=== PATIENT | male | born 1995 | race Caucasian/White ===

== ENCOUNTER 2020-06-05 13:24 | Emergency (ER) | payer BC, SELFPAY ==
[2020-06-05 13:26] VITALS: BP 152/95; PULSE 98; RESP 16; TEMP 36.8; O2SAT 99; BMI 22.2
[2020-06-05 13:30] VITALS: O2SAT 99
--- NOTE | 2020-06-05 13:35 | ED.RN ---
dr garcia accepted. pt will need a [facility] bed. [facility] should have beds this afternoon
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
[2020-06-05] MEDS: Ibuprofen 100 MG/5 ML UDC 600 MG PO (15:49)
--- NOTE | 2020-06-05 15:50 | ED.RN ---
no post op shoe available for pt size.ferny to deliver post op shoe to patient
== END 2020-06-05 15:51 | disposition home or self-care (01) ==
PROVIDERS: Emergency Provider Emergency Medicine
DX: S92.351A Displaced fracture of fifth metatarsal bone, right foot, initial encounter for closed fracture (principal); S93.129A Dislocation of metatarsophalangeal joint of unspecified toe(s), initial encounter; S20.219A Contusion of unspecified front wall of thorax, initial encounter; V43.52XA Car driver injured in collision with other type car in traffic accident, initial encounter; Y93.9 Activity, unspecified; Y92.410 Unspecified street and highway as the place of occurrence of the external cause; Y99.8 Other external cause status
CPT/HCPCS: 28475; 71045; 73620; 73630; 99285

== ENCOUNTER → 2020-06-09 15:33 | Outpatient (CLI) | payer BC, SELFPAY ==
[2020-06-09 17:40] LABS: Absolute Neutrophil Count 5.4 X10^3/uL (2.0-7.7); Basophil# 0.08 X10^3/uL; Eosinophil# 0.15 X10^3/uL; Hematocrit 50.2 % (40-54); Hemoglobin 16.7 g/dL (13.0-16.5); Lymphocyte % 19.5 % (19-41); Mean Corp Hgb Conc 33.3 g/dL (32-36); Mean Corpuscular Hgb 31.2 pg (27.0-32.0); Mean Corpuscular Volume 93.8 fL (80-94); Mean Platelet Vol. 10.5 fl (6.2-12.0); Monocyte# 0.56 X10^3/uL; Monocyte% 7.3 % (0-10); NRBC Flagged by Analyzer 0 % (0-5); Neutrophil # 5.37 X10^3/uL (2.7-7.7); Neutrophil % 69.8 % (47-70); Platelet Count 306 K/mm3 (150-450); RBC Distribution Width CV 12.1 % (11.6-14.6); RBC Distribution Width SD 41.6 fl (35.1-43.9); Red Blood Count 5.35 M/mm3 (4.6-6.2); White Blood Count 7.7 K/mm3 (4.4-11.0)
== END ==
PROVIDERS: PCP Family Medicine; Referring Provider Family Medicine; Visit Provider Family Medicine
DX: Z01.818 Encounter for other preprocedural examination (principal)
CPT/HCPCS: 36415; 85025